=== PATIENT | female | born 1960 | race Caucasian/White ===

== ENCOUNTER 2019-05-08 11:07 | Inpatient (IN) ==
[2019-05-08] MEDS ORDERED: LEVOFLOXACIN 750 MG TABLET PO ONE (11:11)
[2019-05-08] MEDS ORDERED: ACETAMINOPHEN 325 MG TABLET PO PRN ×2 (11:11→14:02)
[2019-05-08 11:36] LABS: Hematocrit 38.2 % (37.0-47.0); Hemoglobin 11.7 gm/dL (12.5-16.0); Mean Cell Volume 91.4 fl (78-100); Mean Corpuscular Hgb Conc 30.6 g/dl (32-36); Mean Platelet Volume 9.7 fl (8-12.5); Neutrophil # 4.5 K/mm3 (1.3-6.0); Neutrophil % 71.4 % (42-75.0); Platelet Count 303 K/mm3 (150-450); Red Blood Count 4.18 M/mm3 (4.2-5.4); Red Cell Distribution Width 15.1 % (11.5-14.0); White Blood Count 6.3 K/mm3 (4.0-10.5)
[2019-05-08] MEDS ORDERED: CYCLOBENZAPRINE HCL 10 MG TABLET PO PRN (14:02)
[2019-05-08] MEDS: ALBUTEROL SULFATE/IPRATROPIUM 3 ML NEBU IH SCH ×3 (14:35→22:15)
[2019-05-08] MEDS: NORMAL SALINE 1,000 ML IV PRN (14:50)
[2019-05-08] MEDS: IBUPROFEN 600 MG TABLET PO PRN (15:02)
[2019-05-08] MEDS: HYDROcodone/ACETAMINOPHEN 1 EACH TABLET PO PRN ×2 (16:40→21:02)
[2019-05-08] MEDS: POTASSIUM CHLORIDE 20 MEQ TABLET.SA PO SCH (16:49)
[2019-05-08] MEDS: MORPHINE SULFATE 30 MG TABLET.SA PO SCH (17:39)
[2019-05-08] MEDS: ENOXAPARIN SODIUM 40 MG/0.4 ML SYRG SC SCH (17:39)
[2019-05-08] MEDS: ALPRAZolam 1 MG TABLET PO PRN (17:42)
[2019-05-08] MEDS: Pilocarpine Hcl 5 MG PO SCH (20:55)
[2019-05-08] MEDS: QUEtiapine FUMARATE 25 MG TABLET PO SCH (20:56)
[2019-05-08] MEDS: SENNOSIDES 8.6 MG TABLET PO SCH (20:56)
[2019-05-08] MEDS: LACTULOSE 10 G/15 ML SYRUP PO PRN (20:57)
[2019-05-08] MEDS ORDERED: FUROSEMIDE 80 MG TABLET PO SCH (21:00)
[2019-05-08] MEDS ORDERED: MORPHINE SULFATE 30 MG TABLET.SA PO SCH (21:00)
[2019-05-08] MEDS: traZODone HCL 50 MG TABLET PO PRN (21:08)
[2019-05-09] MEDS: ALBUTEROL SULFATE/IPRATROPIUM 3 ML NEBU IH SCH ×8 (02:28→22:20)
[2019-05-09] MEDS: IBUPROFEN 600 MG TABLET PO PRN (02:50)
[2019-05-09] MEDS: ALPRAZolam 1 MG TABLET PO PRN ×3 (02:50→13:38)
[2019-05-09] MEDS: MORPHINE SULFATE 30 MG TABLET.SA PO SCH ×2 (05:50→17:55)
[2019-05-09] MEDS: FUROSEMIDE 80 MG TABLET PO SCH ×2 (08:16→13:35)
[2019-05-09] MEDS: PANTOPRAZOLE SODIUM 20 MG TABLET.DR PO SCH (08:17)
[2019-05-09] MEDS: Pilocarpine Hcl 5 MG PO SCH ×2 (08:17→22:13)
[2019-05-09] MEDS: MULTIVITAMINS 1 CAP CAPSULE PO SCH (08:17)
[2019-05-09] MEDS: ROSUVASTATIN CALCIUM 20 MG TABLET PO SCH (08:17)
[2019-05-09] MEDS: LEVOTHYROXINE SODIUM 50 MCG TABLET PO SCH (08:17)
[2019-05-09] MEDS: POTASSIUM CHLORIDE 20 MEQ TABLET.SA PO SCH ×3 (08:17→17:56)
[2019-05-09] MEDS: DOCUSATE SODIUM 100 MG CAPSULE PO SCH (08:17)
[2019-05-09] MEDS: SERTRALINE HCL 100 MG TABLET PO SCH (08:18)
[2019-05-09] MEDS: CHOLECALCIFEROL 1,000 UNIT CAPSULE PO SCH (08:18)
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
[2019-05-09 12:00] LABS: Hematocrit 36.6 % (37.0-47.0); Hemoglobin 11.2 gm/dL (12.5-16.0); Mean Cell Volume 92.2 fl (78-100); Mean Corpuscular Hemoglobin 28.2 pg (27-31); Mean Corpuscular Hgb Conc 30.6 g/dl (32-36); Mean Platelet Volume 9.8 fl (8-12.5); Neutrophil # 3.4 K/mm3 (1.3-6.0); Neutrophil % 59.8 % (42-75.0); Platelet Count 301 K/mm3 (150-450); Red Blood Count 3.97 M/mm3 (4.2-5.4); Red Cell Distribution Width 15.2 % (11.5-14.0); White Blood Count 5.7 K/mm3 (4.0-10.5)
[2019-05-09] MEDS: HYDROcodone/ACETAMINOPHEN 1 EACH TABLET PO PRN ×3 (12:13→22:14)
[2019-05-09 12:16] LABS: Albumin * 2.6 gm/dl (3.4-5.0); Anion Gap 10.4 mmol/L (6.8-13.8); BUN/Creatinine Ratio 11.5 (9.0-21.6); Bilirubin, Total 0.3 mg/dL (0.0-1.1); Calcium * 8.2 mg/dL (7.9-10.9); Carbon Dioxide 30.4 mmol/L (24-32.6); Potassium 2.8 mmol/L (3.4-4.6); Total Protein 6.8 gm/dL (6.2-8.2)
[2019-05-09] MEDS: ACETYLCYSTEINE 200 MG/ML VIAL IH SCH ×3 (13:15→18:45)
[2019-05-09] MEDS: LEVOFLOXACIN 750 MG TABLET PO SCH (13:38)
[2019-05-09] MEDS: NORMAL SALINE 1,000 ML IV PRN (14:26)
[2019-05-09] MEDS: MUPIROCIN 22 APPL TUBE TP PRN (16:25)
[2019-05-09] MEDS: ENOXAPARIN SODIUM 40 MG/0.4 ML SYRG SC SCH (16:30)
[2019-05-09] MEDS: SENNOSIDES 8.6 MG TABLET PO SCH (22:13)
[2019-05-09] MEDS: traZODone HCL 50 MG TABLET PO PRN (22:14)
[2019-05-09] MEDS: QUEtiapine FUMARATE 25 MG TABLET PO SCH (22:14)
[2019-05-09] MEDS: LACTULOSE 10 G/15 ML SYRUP PO PRN (22:15)
--- NOTE | 2019-05-09 23:52 | PN ---
Subjective - Date and Time Seen Date: 05/09/19 Time: 12:00 Subjective Narrative: Blanca reports continued cough and shortness of breath. She reports the mucus is very difficult to cough up with her tracheostomy. She denies fever, chills, nausea, or vomiting. She reports chronic pain all over. Objective - Vitals Vitals: Last Vital Signs Temp 36.8 C 05/09/19 22:06 Pulse 90 05/09/19 22:20 Resp 12 05/09/19 22:20 BP 117/71 05/09/19 22:06 Pulse Ox 99 05/09/19 22:20 - Abnormal Lab Findings Abnormal Lab Findings: Abnormal Lab Results 05/09/19 05/09/19 Range/Units 11:50 11:50 RBC 3.97 L (4.2-5.4) M/mm3 Hgb 11.2 L (12.5-16.0) gm/dL Hct 36.6 L (37.0-47.0) % MCHC 30.6 L (32-36) g/dl RDW 15.2 H (11.5-14.0) % Immature Gran % (Auto) 1.80 H (0.001-0.429) % Immature Gran # (Auto) 0.10 H (0.000-0.0310) K/mm3 Lymphocytes % 14.7 L (20-51) % Monocytes % 9.1 H (0.0-9) % Eosinophils % 14.2 H (0.0-3.0) % Lymphocytes # 0.84 L (1.5-3.5) k/mm3 Eosinophils # 0.8 H (0.0-0.7) k/mm3 Potassium 2.8 L D (3.4-4.6) mmol/L AST 58 H (0-48) U/L Albumin 2.6 L (3.4-5.0) gm/dl - Exam Constitutional: Present: Alert, Oriented x3, Cooperative Respiratory: Present: crackles - left lower lobe Cardiovascular/Chest: Present: regular rate, rhythm, no murmur Skin Exam: Present: normal color, warm/dry, no cyanosis Assessment/Plan Plan Narrative: Continue antibiotics. Having difficulty with mucus and unable to use IS or cornet due to tracheostomy. Will have respiratory work on active deep breathing and will increase strength of mucinex and add mucomyst. Continue to wean from oxygen. Anticipate Blanca will be in the hospital through the weekend. Pneumonia is complicated by her tracheostomy and recent lap cholecystectomy making it difficult to deep breath due to abdominal soreness from surgery . - Problems/Diagnosis (1) Acute respiratory failure Problem: Acute Qualifiers: Respiratory failure complication: hypoxia Qualified Code(s): J96.01 - Acute respiratory failure with hypoxia (2) Left lower lobe pneumonia Problem: Acute
[2019-05-10] MEDS: ALBUTEROL SULFATE/IPRATROPIUM 3 ML NEBU IH SCH ×7 (03:00→22:05)
[2019-05-10] MEDS: ALPRAZolam 1 MG TABLET PO PRN ×4 (03:56→21:21)
[2019-05-10] MEDS: MORPHINE SULFATE 30 MG TABLET.SA PO SCH ×2 (05:58→17:40)
[2019-05-10] MEDS: ACETYLCYSTEINE 200 MG/ML VIAL IH SCH ×3 (06:08→18:02)
[2019-05-10 08:07] LABS: Hematocrit 33.4 % (37.0-47.0); Hemoglobin 10.3 gm/dL (12.5-16.0); Mean Cell Volume 91.3 fl (78-100); Mean Corpuscular Hemoglobin 28.1 pg (27-31); Mean Corpuscular Hgb Conc 30.8 g/dl (32-36); Mean Platelet Volume 9.4 fl (8-12.5); Neutrophil # 3.7 K/mm3 (1.3-6.0); Neutrophil % 62.8 % (42-75.0); Platelet Count 315 K/mm3 (150-450); Red Blood Count 3.66 M/mm3 (4.2-5.4); Red Cell Distribution Width 14.8 % (11.5-14.0); White Blood Count 5.8 K/mm3 (4.0-10.5)
[2019-05-10 08:24] LABS: Albumin * 2.3 gm/dl (3.4-5.0); Anion Gap 9.4 mmol/L (6.8-13.8); BUN/Creatinine Ratio 8.9 (9.0-21.6); Bilirubin, Total 0.3 mg/dL (0.0-1.1); Ca. Corrected For Albumin 9.2 mg/dL (8.4-10.2); Calcium * 8.2 mg/dL (7.9-10.9); Carbon Dioxide 29.6 mmol/L (24-32.6); Total Protein 6.2 gm/dL (6.2-8.2)
[2019-05-10] MEDS: FUROSEMIDE 80 MG TABLET PO SCH ×3 (09:14→16:42)
[2019-05-10] MEDS: LEVOTHYROXINE SODIUM 50 MCG TABLET PO SCH (09:15)
[2019-05-10] MEDS: POTASSIUM CHLORIDE 20 MEQ TABLET.SA PO SCH ×3 (09:16→16:43)
[2019-05-10] MEDS: ROSUVASTATIN CALCIUM 20 MG TABLET PO SCH (09:17)
[2019-05-10] MEDS: MULTIVITAMINS 1 CAP CAPSULE PO SCH (09:17)
[2019-05-10] MEDS: DOCUSATE SODIUM 100 MG CAPSULE PO SCH (09:17)
[2019-05-10] MEDS: CHOLECALCIFEROL 1,000 UNIT CAPSULE PO SCH (09:18)
[2019-05-10] MEDS: SERTRALINE HCL 100 MG TABLET PO SCH (09:18)
[2019-05-10] MEDS: PANTOPRAZOLE SODIUM 20 MG TABLET.DR PO SCH (09:18)
[2019-05-10] MEDS: Pilocarpine Hcl 5 MG PO SCH ×2 (09:18→22:14)
[2019-05-10] MEDS ORDERED: POTASSIUM CHLORIDE 40 MEQ/15 ML LIQUID PO SCH (09:30)
[2019-05-10] MEDS: HYDROcodone/ACETAMINOPHEN 1 EACH TABLET PO PRN ×2 (09:38→21:24)
[2019-05-10] MEDS: LACTULOSE 10 G/15 ML SYRUP PO PRN ×2 (09:41→16:49)
[2019-05-10] MEDS: LEVOFLOXACIN 750 MG TABLET PO SCH (10:48)
--- NOTE | 2019-05-10 14:40 | PN ---
Subjective - Date and Time Seen Date: 05/10/19 Time: 09:00 Subjective Narrative: No acute events overnight. Objective - Review of Systems Generalized/Overall Review: Reports: Weakness. Denies: Chills, Fever, Fatigue Respiratory: Denies: Cough, Shortness of Breath, Orthopnea, Wheezing Cardiac: Reports: Edema. Denies: Chest Pain Abdominal: Denies: Abdominal Pain Genitourinary Symptoms: Denies: No Symptoms Reported Musculoskeletal Complaints: Reports: Joint Swelling - BL LE. Denies: Joint Pain, Back Pain Neurological: Reports: No Symptoms Reported, Weakness Skin: Reports: No Symptoms Reported Endocrine: Reports: No Symptoms Reported - Vitals Vitals: Last Vital Signs Temp 36.5 C 05/10/19 10:00 Pulse 88 05/10/19 13:49 Resp 18 05/10/19 13:49 BP 80/60 L 05/10/19 13:30 Pulse Ox 97 05/10/19 13:49 - Abnormal Lab Findings Abnormal Lab Findings: Abnormal Lab Results 05/10/19 05/10/19 Range/Units 07:50 07:50 RBC 3.66 L (4.2-5.4) M/mm3 Hgb 10.3 L (12.5-16.0) gm/dL Hct 33.4 L (37.0-47.0) % MCHC 30.8 L (32-36) g/dl RDW 14.8 H (11.5-14.0) % Immature Gran % (Auto) 2.10 H (0.001-0.429) % Immature Gran # (Auto) 0.12 H (0.000-0.0310) K/mm3 Lymphocytes % 16.5 L (20-51) % Monocytes % 10.5 H (0.0-9) % Eosinophils % 7.9 H (0.0-3.0) % Lymphocytes # 0.96 L (1.5-3.5) k/mm3 Potassium 3.0 L (3.4-4.6) mmol/L BUN/Creatinine Ratio 8.9 L (9.0-21.6) AST 61 H (0-48) U/L Albumin 2.3 L (3.4-5.0) gm/dl - Exam Constitutional: Present: Alert, Oriented x3, Cooperative, Well developed ENT Exam: Present: hearing grossly normal Neck: Present: full range of motion Respiratory: Present: chest non-tender, lungs clear, normal breath sounds, no respiratory distress, No rales, No wheezing Cardiovascular/Chest: Present: normal peripheral pulses, regular rate, rhythm, no chest tenderness, edema - BL LE Abdomen: Present: Normal bowel sounds, soft, nontender Extremity: Present: normal inspection, lower extremity edema Skin Exam: Present: normal color, warm/dry Neurologic: Present: alert, oriented x 3 Appearance: Present: appropriate appearance Eye contact: Present: cooperative Assessment/Plan Plan Narrative: Assessment/Plan: 59 y/o F admitted for PNA and CHF exacerbation Pnuemonia - Leukocytosis resolved - Patient responding well - Sputum Culture grew staph - Compplete abx course CHF exacerbation - Diuresing well - Decreased dose of lasix due to hypotension Hypotension - gentle hydration with NS mIVFs at 30 ml/hr - Decresed dose of furosemide to 80 mg PO BID - Continue to monitor Hypokalemia - Will replete - Cont. to monitor FEN: PITO, HH Diet DVT PPX: Lovenox 40 mg SC Code Status: Full Code Disposition: - RT to manage trach, patient complaining of dryness - Improving with PT - Anticipate discharge within 24 - 48 hours - Problems/Diagnosis (1) Left lower lobe pneumonia Problem: Acute Qualifiers: Pneumonia type: due to methicillin-sensitive Staphylococcus aureus (MSSA) Qualified Code(s): J15.211 - Pneumonia due to Methicillin susceptible Staphylococcus aureus (2) Hypokalemia Problem: Acute (3) CHF (congestive heart failure) Problem: Acute Qualifiers: Heart failure type: unspecified Heart failure chronicity: unspecified Qualified Code(s): I50.9 - Heart failure, unspecified
[2019-05-10] MEDS: ENOXAPARIN SODIUM 40 MG/0.4 ML SYRG SC SCH (16:44)
[2019-05-10] MEDS: MUPIROCIN 22 APPL TUBE TP PRN (17:45)
[2019-05-10] MEDS: QUEtiapine FUMARATE 25 MG TABLET PO SCH (21:16)
[2019-05-10] MEDS: SENNOSIDES 8.6 MG TABLET PO SCH (21:16)
[2019-05-10] MEDS: traZODone HCL 50 MG TABLET PO PRN (21:21)
[2019-05-11] MEDS: ALBUTEROL SULFATE/IPRATROPIUM 3 ML NEBU IH SCH ×4 (02:05→14:03)
[2019-05-11] MEDS: ALPRAZolam 1 MG TABLET PO PRN ×3 (04:56→15:20)
[2019-05-11 05:37] LABS: Hematocrit 36.4 % (37.0-47.0); Hemoglobin 11.1 gm/dL (12.5-16.0); Mean Cell Volume 92.2 fl (78-100); Mean Corpuscular Hemoglobin 28.1 pg (27-31); Mean Corpuscular Hgb Conc 30.5 g/dl (32-36); Mean Platelet Volume 9.5 fl (8-12.5); Neutrophil % 52.8 % (42-75.0); Platelet Count 380 K/mm3 (150-450); Red Blood Count 3.95 M/mm3 (4.2-5.4); Red Cell Distribution Width 14.9 % (11.5-14.0); White Blood Count 5.7 K/mm3 (4.0-10.5)
[2019-05-11] MEDS: MORPHINE SULFATE 30 MG TABLET.SA PO SCH (05:42)
[2019-05-11 05:47] LABS: Albumin * 2.5 gm/dl (3.4-5.0); Anion Gap 11.2 mmol/L (6.8-13.8); BUN/Creatinine Ratio 5.2 (9.0-21.6); Bilirubin, Total 0.4 mg/dL (0.0-1.1); Ca. Corrected For Albumin 9.8 mg/dL (8.4-10.2); Calcium * 8.9 mg/dL (7.9-10.9); Carbon Dioxide 27.4 mmol/L (24-32.6); Potassium 3.6 mmol/L (3.4-4.6); Total Protein 6.6 gm/dL (6.2-8.2)
[2019-05-11] MEDS: ACETYLCYSTEINE 200 MG/ML VIAL IH SCH ×2 (06:27→14:03)
[2019-05-11] MEDS ORDERED: POTASSIUM CHLORIDE 40 MEQ/15 ML LIQUID PO SCH (09:00)
[2019-05-11] MEDS: PANTOPRAZOLE SODIUM 20 MG TABLET.DR PO SCH (09:22)
[2019-05-11] MEDS: HYDROcodone/ACETAMINOPHEN 1 EACH TABLET PO PRN ×2 (09:25→15:20)
[2019-05-11] MEDS: FUROSEMIDE 80 MG TABLET PO SCH (09:26)
[2019-05-11] MEDS: LEVOTHYROXINE SODIUM 50 MCG TABLET PO SCH (09:26)
[2019-05-11] MEDS: POTASSIUM CHLORIDE 20 MEQ TABLET.SA PO SCH ×2 (09:26→12:06)
[2019-05-11] MEDS: Pilocarpine Hcl 5 MG PO SCH (09:27)
[2019-05-11] MEDS: DOCUSATE SODIUM 100 MG CAPSULE PO SCH (09:27)
[2019-05-11] MEDS: ROSUVASTATIN CALCIUM 20 MG TABLET PO SCH (09:27)
[2019-05-11] MEDS: MULTIVITAMINS 1 CAP CAPSULE PO SCH (09:27)
[2019-05-11] MEDS: CHOLECALCIFEROL 1,000 UNIT CAPSULE PO SCH (09:28)
[2019-05-11] MEDS: SERTRALINE HCL 100 MG TABLET PO SCH (09:28)
[2019-05-11] MEDS: LACTULOSE 10 G/15 ML SYRUP PO PRN (09:35)
[2019-05-11] MEDS: LEVOFLOXACIN 750 MG TABLET PO SCH (12:06)
--- NOTE | 2019-05-11 12:24 | DS ---
(1) Left lower lobe pneumonia Problem: Acute Qualifiers: Pneumonia type: due to methicillin-sensitive Staphylococcus aureus (MSSA) Qualified Code(s): J15.211 - Pneumonia due to Methicillin susceptible Staphylococcus aureus (2) Hypokalemia Problem: Acute (3) CHF (congestive heart failure) Problem: Acute Qualifiers: Heart failure type: unspecified Heart failure chronicity: unspecified Qualified Code(s): I50.9 - Heart failure, unspecified Date of Discharge:: 05/11/19 Hospital Course: 59-year-old female with past medical history of laryngeal cancer with tracheostomy and recent history of lap catrachito performed at [facility] on April 28, 2019 presented to clinic with shortness of breath progressively getting worse and hypoxic, oxygen 85% on room air. Symptoms of shortness of breath began shortly after surgery, patient was having a difficult time taking deep breaths due to poorly controlled pain secondary to surgery. Shortly after she started having a productive cough with thick mucus which was coming out of her tracheostomy, and felt a sensation of choking. Patient was also found to have generalized weakmess upon admission. Remaining vital signs were stable. Patient admitted from clinic for acute respiratory failure with 84% on room air. Labs and chest x-ray were consistent with left lower lobe pneumonia. Patient started on oxygen over her tracheostomy with parameters of oxygen greater than 90%. Started on IV Levaquin 750 mg daily treatment course of 7 days, along with nebulizer treatment. Patient responded well to treatment. During hospitalization patient became hypotensive and hypokalemic due to high dose of furosemide. Dose decreased to 80 mg twice daily. Potassium repleted. Labs obtained daily and leukocytosis trended down and resolved before discharge. Patient had concerns about her tracheostomy due to pain and dryness. RT evaluated and managed her tracheostomy and increased humidification of her oxygen, weaned off oxygen successfully and flap placed over tracheostomy to prevent any further dryness irritation. Discussed with patient I had to lower her dose of furosemide due to hypertension and to follow-up with PCP for medication adjustment. Advised patient we will discharge her with Tubagrip double thigh-high and to wear them daily whilst awake, to help with lower extremity edema. Pitting edema is approximately 1+, improvement from admission. Explained to patient rash on her lower extremity is stasis dermatitis. Due to weakness PT was ordered from admission, and tolerated well. Advised patient she has been weaned off oxygen and all IV medication and stable to be discharged home. Patient already has home health and recommend continuing PT for strengthening. Advised patient treatment course for pneumonia is 7 days and she has completed 4 out of the 7 days. We will discharge her with levofloxacin 750 mg daily for 3 days. Patient initially was resistant to discharge, however she eventually agreed and was thankful for the care she received at the hospital. Advised to follow-up with primary care provider, Dr. Rasmussen 1 week from discharge. 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 The need for usp is medication management, tracheostomy management and surgery follow-up. The need for physical therapy is for strengthening, endurance and gait and balance issues and fall precautions along with mobility issues. The need for occupational therapy is assistance with bathing and activities of daily living. The need for home health care skilled services directly related to the time spent [id number] with the present Procedures Performed: none Care Plan Goals: Complete antibiotic course of Levaquin 750 mg 1 tablet daily for 3 days. Plan of Treatment: Levaquin 750 mg 1 tablet daily for 3 days for pneumonia Assessment: Acute respiratory failure secondary to pneumonia, now resolved. Patient is hemodynamically stable and medically cleared for discharge. Results and Findings: Lab Pending Results 05/08/19 11:26: WBC 6.3, RBC 4.18 L, Hgb 11.7 L, Hct 38.2, MCV 91.4, MCH 28.0, MCHC 30.6 L, RDW 15.1 H, Plt Count 303, MPV 9.7, Immature Gran % (Auto) 1.10 H, Immature Gran # (Auto) 0.07 H, Neutrophils % 71.4, Lymphocytes % 12.0 L, Monocytes % 8.5, Eosinophils % 6.7 H, Basophils % 0.3, Nucleated RBC % 0.0, Neutrophils # 4.5, Lymphocytes # 0.75 L, Monocytes # 0.5, Eosinophils # 0.4, Absolute Basophils 0.0 05/08/19 11:26: Lactic Acid, Venous 0.9 05/08/19 11:26: Influenza Type A Ag Negative, Influenza Type B Ag Negative 05/09/19 11:50: WBC 5.7, RBC 3.97 L, Hgb 11.2 L, Hct 36.6 L, MCV 92.2, MCH 28.2, MCHC 30.6 L, RDW 15.2 H, Plt Count 301, MPV 9.8, Immature Gran % (Auto) 1.80 H, Immature Gran # (Auto) 0.10 H, Neutrophils % 59.8, Lymphocytes % 14.7 L, Monocytes % 9.1 H, Eosinophils % 14.2 H, Basophils % 0.4, Nucleated RBC % 0.0, Neutrophils # 3.4, Lymphocytes # 0.84 L, Monocytes # 0.5, Eosinophils # 0.8 H, Absolute Basophils 0.0 05/09/19 11:50: Sodium 142, Plasma Sodium 142, Potassium 2.8 L D, Chloride 104, Carbon Dioxide 30.4, Anion Gap 10.4, BUN 11, Creatinine 0.96, Est GFR (Non-Af Amer) 63, BUN/Creatinine Ratio 11.5, Random Glucose 100, Calcium 8.2, Calcium Adj for Albumin 9.0, Total Bilirubin 0.3, AST 58 H, ALT 41, Alkaline Phosphatase 80, Total Protein 6.8, Albumin 2.6 L 05/10/19 07:50: WBC 5.8, RBC 3.66 L, Hgb 10.3 L, Hct 33.4 L, MCV 91.3, MCH 28.1, MCHC 30.8 L, RDW 14.8 H, Plt Count 315, MPV 9.4, Immature Gran % (Auto) 2.10 H, Immature Gran # (Auto) 0.12 H, Neutrophils % 62.8, Lymphocytes % 16.5 L, Monocytes % 10.5 H, Eosinophils % 7.9 H, Basophils % 0.2, Nucleated RBC % 0.0, Neutrophils # 3.7, Lymphocytes # 0.96 L, Monocytes # 0.6, Eosinophils # 0.5, Absolute Basophils 0.0 05/10/19 07:50: Sodium 141, Plasma Sodium 141, Potassium 3.0 L, Chloride 105, Carbon Dioxide 29.6, Anion Gap 9.4, BUN 8, Creatinine 0.90, Est GFR (Non-Af Amer) 68, BUN/Creatinine Ratio 8.9 L, Random Glucose 93, Calcium 8.2, Calcium Adj for Albumin 9.2, Total Bilirubin 0.3, AST 61 H, ALT 39, Alkaline Phosphatase 64, Total Protein 6.2, Albumin 2.3 L 05/11/19 04:30: WBC 5.7, RBC 3.95 L, Hgb 11.1 L, Hct 36.4 L, MCV 92.2, MCH 28.1, MCHC 30.5 L, RDW 14.9 H, Plt Count 380, MPV 9.5, Immature Gran % (Auto) 4.20 H, Immature Gran # (Auto) 0.24 H, Neutrophils % 52.8, Lymphocytes % 20.6, Monocytes % 11.6 H, Eosinophils % 10.1 H, Basophils % 0.7, Nucleated RBC % 0.0, Neutrophils # 3.0, Lymphocytes # 1.17 L, Monocytes # 0.7, Eosinophils # 0.6, Absolute Basophils 0.0 05/11/19 04:30: Sodium 141, Plasma Sodium 141, Potassium 3.6, Chloride 106, Carbon Dioxide 27.4, Anion Gap 11.2, BUN 5, Creatinine 0.97, Est GFR (Non-Af Amer) 62, BUN/Creatinine Ratio 5.2 L, Random Glucose 86, Calcium 8.9, Calcium Adj for Albumin 9.8, Total Bilirubin 0.4, AST 100 H, ALT 60, Alkaline Phosphatase 71, Total Protein 6.6, Albumin 2.5 L Discharge Location: Home Disposition: Home Health Service Home Health Agency: [facility] Home Health - Patient is rate establish with home health care and receives care therefore to continue outpatient Condition: Stable Face to Face Encounter completed per CMS Guidelines: Yes - Martita Andersen is confined to the home due to generalized weakness nurse a Discharge Activity: Activity as tolerated Discharge Diet: Resume usual diet Referrals: Sky Rasmussen DO [Primary Care Provider] - One Week (Hospital follow-up for acute respiratory failure due to pneumonia) Additional Patient Instructions (free text): Has [facility] HH ongoing, please call and fax discharge information to them. Complete Home Medications List: Complete Home Medication List: Multivitamins [Multivitamin Citlali] 1 cap PO DAILY 02/11/13 Sennosides [Senna] 8.6 mg PO HS 02/11/13 Vitamin B Complex Vit C No.3 [B Complex with Vitamin C] 1 ea PO DAILY 08/22/13 cholecalciferol (vitamin D3) 1,000 unit capsule 2,000 unit PO DAILY 10/24/17 docusate sodium 100 mg capsule 100 mg PO DAILY 10/24/17 mupirocin 2 % topical ointment 1 applic TP TID PRN 10/24/17 cyclobenzaprine 10 mg tablet 10 mg PO TID PRN #270 tab 02/13/18 ibuprofen 600 mg tablet 600 mg PO QID PRN #60 tab 07/01/18 pilocarpine HCl 5 mg tablet 5 mg PO BID #180 tab 02/28/19 rosuvastatin 40 mg tablet 40 mg PO DAILY #90 tab 03/03/19 omeprazole 20 mg capsule,delayed release 20 mg PO DAILY #90 cap 03/17/19 clotrimazole 1 % topical cream 1 applic TP BID PRN #45 g 03/31/19 cyanocobalamin (vitamin B-12) 1,000 mcg/mL injection solution 1,000 mcg IM QMONTH #1 ml 03/31/19 sertraline 100 mg tablet 200 mg PO DAILY #60 tab 04/01/19 morphine 30 mg tablet,extended release 30 mg PO Q12H #60 tab 04/18/19 alprazolam 1 mg tablet 1 mg PO QID PRN #120 tab 04/21/19 Acetaminophen 650 mg PO Q6H PRN 05/08/19 Albuterol Sulfate [Albuterol Sulfate 2.5 MG/0.5ML] 2.5 mg INHALATION QID PRN 05/08/19 Enoxaparin Sodium [Lovenox] 40 mg SQ DAILY 05/08/19 HYDROcodone/ACETAMINOPHEN [[place] 10-325 Tablet] 1 tab PO QID PRN 05/08/19 Lactulose 10 gm PO TID PRN 05/08/19 Levothyroxine Sodium [Tirosint] 50 mcg PO QAM 05/08/19 Potassium Chloride [Klor-Con M20] 20 meq PO TID 05/08/19 QUEtiapine FUMARATE [Quetiapine Fumarate ER] 50 mg PO HS 05/08/19 guaiFENesin [Guaifenesin ER] 600 mg PO DAILY PRN 05/08/19 traZODone HCL [Trazodone HCl] 100 mg PO HS PRN 05/08/19 Furosemide [Lasix] 80 mg PO BID@0900,1700 #60 tab 05/11/19 Levofloxacin [Levaquin] 750 mg PO DAILY@1100 3 Days #3 tab 05/11/19
[2019-05-11 16:59] VITALS: BP 107/55
== END 2019-05-11 16:45 | disposition home health service (06) | DRG 177 ==
LOC: MS 11:07
PROVIDERS: ADMIT Family Medicine; ATTEND Family Medicine
CPT/HCPCS: 36415; 71020; 71046; 80053; 83605; 85025; 87070; 87077; 87186; 87205; 87400; 87449; 89220; 94640